=== PATIENT | female | born 1935 | race Hispanic/Latino ===

== ENCOUNTER 2018-07-22 12:57 | Emergency (ER) | payer MEDICARE ==
[2018-07-22 13:08] VITALS: BMI 23.3
[2018-07-22 13:09] VITALS: BP 119/79; PULSE 79; RESP 16; TEMP 98.1
[2018-07-22 13:15] VITALS: O2SAT 98
--- NOTE | 2018-07-22 14:44 | ED PDOC ---
Lower Extremity Pain/Injury Time Seen by Provider: 07/22/18 13:16 Chief Complaint (Nursing): Lower Extremity Problem/Injury Chief Complaint (Provider): LE swelling and pain History Per: Patient, Family History/Exam Limitations: no limitations Onset/Duration Of Symptoms: Days Current Symptoms Are (Timing): Still Present Additional Complaint(s): Pt. is an 82 y/o female with Afib on xarelto who presents to ED with 1 week history of progressive lower leg swelling and pain. Pt. is ambulatory but with mild pain. Pt. was seen by Dr. Sushma Burk today and was sent to ED for duplex, x- rays. Past Medical History Vital Signs: Last Vital Signs Temp 98.1 F 07/22/18 13:08 Pulse 79 07/22/18 13:08 Resp 16 07/22/18 13:08 BP 119/79 07/22/18 13:08 Pulse Ox 98 07/22/18 13:13 - Medical History PMH: Anxiety, Atrial Fibrillation, HTN, Hypercholesterolemia, Hyperlipidemia, Migraine Denies: HIV, Chronic Kidney Disease - Family History Family History: States: Unknown Family Hx - Home Medications Home Medications: Ambulatory Orders Medication Instructions Recorded Acetaminophen/Butalbital/Caf 1 tab PO Q6H PRN 12/27/14 [Fioricet] Carbamazepine [Tegretol] 100 mg PO BID 12/27/14 Esomeprazole Magnesium [Nexium] 40 mg PO BID PRN 12/27/14 Lorazepam [Ativan] 1 mg PO TID PRN 12/27/14 Montelukast [Singulair] 10 mg PO HS 12/27/14 Mupirocin 2% Ointment [Bactroban 1 appl TOP BID 12/27/14 Ointment] Oxycodone HCl/Acetaminophen 1 tab PO Q6H PRN 12/27/14 [Percocet 5-325 mg Tablet] Ranitidine Hydrochloride [Zantac] 150 mg PO BID PRN 12/27/14 Rosuvastatin Calcium [Crestor] 10 mg PO DAILY 12/27/14 Triamcinolone 0.1% [Triamcinolone 1 appl TOP BID 12/27/14 0.1% Oint] amLODIPine [Norvasc] 10 mg PO DAILY 12/27/14 Gabapentin [Neurontin] 100 mg PO TID #0 cap 12/31/14 Hydrocortisone [Cortizone 2.5% 1 applic TP BID PRN #0 tube 12/31/14 CREAM] LORazepam [Ativan] 1 mg PO Q12 #0 tab 12/31/14 Lisinopril [Zestril] 10 mg PO DAILY #0 tab 12/31/14 Metoprolol Tartrate [Lopressor] 50 mg PO Q12 #0 tab 12/31/14 Rivaroxaban [Xarelto] 20 mg PO QD5 #0 tab 12/31/14 - Allergies Allergies/Adverse Reactions: Allergies Allergy/AdvReac Type Severity Reaction Status Date / Time No Known Allergies Allergy Verified 07/22/18 13:13 Review of Systems Constitutional: Negative for: Fever, Chills, Sweats Cardiovascular: Negative for: Chest Pain Respiratory: Negative for: Cough, Shortness of Breath Musculoskeletal: Positive for: Leg Pain Skin: Positive for: Other (erytehma of lower legs) Neurological: Negative for: Weakness, Numbness Physical Exam - Reviewed Vital Signs Reviewed: Yes - Physical Exam Appears: Positive for: Well, Non-toxic Head Exam: Positive for: ATRAUMATIC Skin: Positive for: Normal Color, Warm, Dry Eye Exam: Positive for: Normal appearance Cardiovascular/Chest: Positive for: Regular Rate, Rhythm Respiratory: Positive for: Normal Breath Sounds Gastrointestinal/Abdominal: Positive for: Normal Exam Extremity: Positive for: Other (Lower Extremities: (+) mild swelling with tenderness to bilateral lower extremities extending from dorsal feet to mid anterior lower leg, (+) mildly tender varicosities to both calves. (+) slight erythema.) - ECG O2 Sat by Pulse Oximetry: 98 Medical Decision Making Medical Decision Making: cbc, cmp, pt/ptt xray venous duplex Pt. well appearing, nontoxic, ambulatory. Tylenol po given for pain. Case endorsed to NAJMA Baumann Disposition - Clinical Impression Clinical Impression: Leg pain - Patient ED Disposition Is Patient to be Admitted: Transfer of Care (NAJMA Baumann) - Disposition Disposition Time: 14:48 Condition: STABLE
--- NOTE | 2018-07-22 15:34 | RAD ---
Date of service: 07/22/2018 PROCEDURE: Bilateral Feet Radiographs. HISTORY: swelling COMPARISON: None. TECHNIQUE: 6 views obtained. FINDINGS: BONES: Right Foot: No acute fracture. Inferior plantar calcaneal spur. Left Foot: No acute fracture. Inferior plantar calcaneal spur. JOINTS: Right Foot: Interphalangeal joint space narrowing. Left Foot: Interphalangeal joint space narrowing. SOFT TISSUES: Right Foot: Base of 5th metatarsal enthesopathy. Achilles enthesopathy. Left Foot: Base of 5th metatarsal enthesopathy. Achilles enthesopathy. OTHER FINDINGS: None. IMPRESSION: No demonstrated fracture or dislocation. Degenerative changes.
--- NOTE | 2018-07-22 16:08 | US ---
Date of service: 07/22/2018 PROCEDURE: Bilateral lower extremity venous duplex Doppler. HISTORY: LE swelling COMPARISON: Bilateral lower extremity venous duplex ultrasound performed 02/23/2011. TECHNIQUE: Bilateral common femoral, superficial femoral, popliteal and posterior tibial veins were evaluated. Flow was assessed with color Doppler, compressibility, assessment of phasic flow and augmentation response. FINDINGS: COMMON FEMORAL VEIN: Right CFV: Unremarkable. Left CFV: Unremarkable. SUPERFICIAL FEMORAL VEIN: Right SFV: Unremarkable. Left SFV: Unremarkable. POPLITEAL VEIN: Right Popliteal: Unremarkable. Left Popliteal: Unremarkable. POSTERIOR TIBIAL VEIN: Right PTV: Unremarkable. Left PTV: Unremarkable. OTHER FINDINGS: Right popliteal fossa complex Martinez's cyst measuring 9.1 x 2.4 x 3.6 cm IMPRESSION: No evidence of deep venous thrombosis. Complex right popliteal fossa Martinez cyst.
[2018-07-22 16:29] LABS: ALB/GLOB RATIO 1.5 (1.0-2.1); ALBUMIN 3.9 g/dL (3.5-5.0); ALT/SGPT 22 U/L (9-52); AST/SGOT 27 U/L (14-36); BLOOD UREA NITROGEN 18 mg/dl (7-17); CALCIUM 9.4 mg/dL (8.4-10.2); GFR NON-AFRICAN AMERICAN > 60
[2018-07-22 16:33] LABS: BASO % 0.5 % (0.0-2.0); EOS # 0.1 K/uL (0.0-0.7); EOS % 3.1 % (0.0-4.0); HEMOGLOBIN 12.1 g/dL (12.0-16.0); INR 1.2; LYMPH # 1.2 K/uL (1.0-4.3); LYMPH % 46.4 % (20.0-40.0); MEAN CELL VOLUME 82.7 fl (81.0-99.0); MEAN CORPUSCULAR HEMOGLOBIN 26.4 pg (27.0-31.0); MEAN CORPUSCULAR HGB CONC 31.9 g/dL (33.0-37.0); MEAN PLATELET VOLUME 9.4 fl (7.2-11.7); MONO # 0.2 K/uL (0.0-0.8); MONO % 9.5 % (0.0-10.0); NEUT # 1.1 K/uL (1.8-7.0); NEUT % 40.5 % (50.0-75.0); NRBC % 0.3 % (0.0-0.0); PROTHROMBIN TIME 13.5 Seconds (9.8-13.1); RBC 4.58 Mil/uL (3.80-5.20); RED CELL DISTRIBUTION WIDTH 13.9 % (11.5-14.5); WHITE BLOOD COUNT 2.6 K/uL (4.8-10.8)
--- NOTE | 2018-07-22 16:35 | ED PDOC ---
Lower Extremity Pain/Injury Time Seen by Provider: 07/22/18 13:16 Chief Complaint (Nursing): Lower Extremity Problem/Injury Past Medical History Vital Signs: Last Vital Signs Temp 98.1 F 07/22/18 13:08 Pulse 79 07/22/18 13:08 Resp 16 07/22/18 13:08 BP 119/79 07/22/18 13:08 Pulse Ox 98 07/22/18 14:48 - Medical History PMH: Anxiety, Atrial Fibrillation, HTN, Hypercholesterolemia, Hyperlipidemia, Migraine Denies: HIV, Chronic Kidney Disease - Family History Family History: States: Unknown Family Hx - Home Medications Home Medications: Ambulatory Orders Medication Instructions Recorded Acetaminophen/Butalbital/Caf 1 tab PO Q6H PRN 12/27/14 [Fioricet] Carbamazepine [Tegretol] 100 mg PO BID 12/27/14 Esomeprazole Magnesium [Nexium] 40 mg PO BID PRN 12/27/14 Lorazepam [Ativan] 1 mg PO TID PRN 12/27/14 Montelukast [Singulair] 10 mg PO HS 12/27/14 Mupirocin 2% Ointment [Bactroban 1 appl TOP BID 12/27/14 Ointment] Oxycodone HCl/Acetaminophen 1 tab PO Q6H PRN 12/27/14 [Percocet 5-325 mg Tablet] Ranitidine Hydrochloride [Zantac] 150 mg PO BID PRN 12/27/14 Rosuvastatin Calcium [Crestor] 10 mg PO DAILY 12/27/14 Triamcinolone 0.1% [Triamcinolone 1 appl TOP BID 12/27/14 0.1% Oint] amLODIPine [Norvasc] 10 mg PO DAILY 12/27/14 Gabapentin [Neurontin] 100 mg PO TID #0 cap 12/31/14 Hydrocortisone [Cortizone 2.5% 1 applic TP BID PRN #0 tube 12/31/14 CREAM] LORazepam [Ativan] 1 mg PO Q12 #0 tab 12/31/14 Lisinopril [Zestril] 10 mg PO DAILY #0 tab 12/31/14 Metoprolol Tartrate [Lopressor] 50 mg PO Q12 #0 tab 12/31/14 Rivaroxaban [Xarelto] 20 mg PO QD5 #0 tab 12/31/14 - Allergies Allergies/Adverse Reactions: Allergies Allergy/AdvReac Type Severity Reaction Status Date / Time No Known Allergies Allergy Verified 07/22/18 13:13 - Laboratory Results Result Diagrams: 07/22/18 15:50 Lab Results: PT 13.5 Seconds (9.8-13.1) H 07/22/18 15:50 INR 1.2 07/22/18 15:50 Total Bilirubin 0.6 mg/dl (0.2-1.3) 07/22/18 15:50 AST 27 U/L (14-36) 07/22/18 15:50 ALT 22 U/L (9-52) 07/22/18 15:50 Alkaline Phosphatase 74 U/L (38-126) 07/22/18 15:50 Total Protein 6.5 G/DL (6.3-8.2) 07/22/18 15:50 Albumin 3.9 g/dL (3.5-5.0) 07/22/18 15:50 Globulin 2.5 gm/dL (2.2-3.9) 07/22/18 15:50 Albumin/Globulin Ratio 1.5 (1.0-2.1) 07/22/18 15:50 - ECG O2 Sat by Pulse Oximetry: 98 Disposition - Clinical Impression Clinical Impression: Small vessel disease, cerebrovascular - Patient ED Disposition Is Patient to be Admitted: No Doctor Will See Patient In The: Office Counseled Patient/Family Regarding: Studies Performed - Disposition Disposition: Routine/Home Disposition Time: 14:48 Condition: GOOD Additional Instructions: F/u with pmd in two days and return to ed immediately if your condition worsens. Forms: [employer] ([place]i)
[2018-07-22 16:36] LABS: PARTIAL THROMBOPLASTIN TIME 32.9 Seconds (25.6-37.1)
== END 2018-07-22 17:26 | disposition home or self-care (01) ==
LOC: H.ER 12:57
DX: I73.9 Peripheral vascular disease, unspecified (principal); I10 Essential (primary) hypertension